=== PATIENT | female | born 1965 | race Caucasian/White ===

== ENCOUNTER → 2016-11-01 | Outpatient (CLI) | payer OTHER, BC ==
[2016-11-01 13:44] LABS: MEAN CORPUSCULAR HGB CONC 32.4 g/dL (31.0-37.0); PLATELET COUNT 269 10^3uL (150-450); WHITE BLOOD COUNT 6.65 10^3uL (4.0-11.0)
[2016-11-01 13:45] LABS: MEAN CORPUSCULAR VOLUME 74 FL (80-100)
[2016-11-01 14:04] LABS: BAND NEUTROPHILS % 1 % (0-6); EOSINOPHILS % 7 % (0-4); LYMPHOCYTES # 2.3 #; MONOCYTES # 0.2 #; MONOCYTES % 4 % (3-11); RBC MORPH NORMAL (NORMAL); SEGMENTED NEUTROPHILS % 52 % (51-67); TOTAL CELLS COUNTED 100
[2016-11-01 17:40] LABS: IRON 27 ug/dL (50-170); UNBOUND IRON CONTENT 403 ug/dl (126-382)
== END ==
LOC: LAB 13:33
PROVIDERS: ATTEND Internal Medicine Hematology & Oncology
DX: D50.9 Iron deficiency anemia, unspecified (principal)
CPT/HCPCS: 36415; 82728; 83540; 83550; 85007; 85027

== ENCOUNTER → 2017-01-17 | Outpatient (CLI) | payer OTHER, BC ==
[2017-01-17 15:03] LABS: MEAN CORPUSCULAR HEMOGLOBIN 27.6 PG (26.0-34.0); MEAN CORPUSCULAR HGB CONC 33.7 g/dL (31.0-37.0); MEAN CORPUSCULAR VOLUME 82 FL (80-100); MEAN PLATELET VOLUME 10.5 FL (6.0-9.5); PLATELET COUNT 230 10^3uL (150-450); WHITE BLOOD COUNT 6.41 10^3uL (4.0-11.0)
[2017-01-17 15:05] LABS: BAND NEUTROPHILS % 0 % (0-6); EOSINOPHILS % 4 % (0-4); MONOCYTES # 0.3 #; MONOCYTES % 5 % (3-11); RBC MORPH NORMAL (NORMAL); SEGMENTED NEUTROPHILS % 60 % (51-67); TOTAL CELLS COUNTED 100
[2017-01-17 22:06] LABS: IRON 41 ug/dL (50-170); UNBOUND IRON CONTENT 327 ug/dl (126-382)
== END ==
LOC: LAB 14:48
PROVIDERS: ATTEND Internal Medicine Hematology & Oncology
DX: D50.9 Iron deficiency anemia, unspecified (principal)
CPT/HCPCS: 36415; 82728; 83540; 83550; 85007; 85027